=== PATIENT | female | born 1975 | race African-American/Black ===

== ENCOUNTER 2018-06-10 21:29 | Emergency (ER) | payer BC, MEDICAID ==
[~2018-06-10] VITALS: Ht 165.1 cm; Wt 107.0 kg
[2018-06-11] MEDS ORDERED: SODIUM CHLORIDE 0.9% 1,000 ML IV ONE (00:35)
[2018-06-11 01:18] LABS: BASOPHILS % 1.2 % (0.0-2.0); EOSINOPHILS % 6.9 % (0.0-5.0); HEMATOCRIT. 39.1 % (36.0-48.0); HEMOGLOBIN. 13.3 g/dL (12.0-16.0); LYMPHOCYTES % 45.7 % (20.0-50.0); MEAN CORPUSCULAR HEMOGLOBIN 31.8 pg (28.0-32.0); MEAN CORPUSCULAR VOLUME 93.8 fL (81.0-99.0); MEAN PLATELET VOLUME 7.7 fl (7.4-10.4); NEUTROPHILS % 41.2 % (40.0-76.0); PLATELET 280 x1000/uL (130-400); RED BLOOD CELL COUNT 4.18 mill/uL (4.2-5.4); RED CELL DISTRIBUTION WIDTH 12.9 % (11.6-14.6)
[2018-06-11 01:22] LABS: CHLORIDE 106 mEq/L (98-107)
[2018-06-11 01:23] LABS: PROTHROMBIN TIME 9.7 sec (9.1-11.1)
[2018-06-11 01:25] LABS: HCG SCREEN NEGATIVE
[2018-06-11 04:43] LABS: CLARITY URINE CLEAR (CLEAR); COLOR URINE YELLOW (YELLOW); KETONES URINE NEGATIVE (NEGATIVE); LEUKOCYTE ESTERASE URINE NEGATIVE (NEGATIVE); NITRITE URINE NEGATIVE (NEGATIVE); OCCULT BLOOD URINE 1+ (NEGATIVE); PROTEIN URINE NEGATIVE (NEGATIVE); SPECIFIC GRAVITY URINE 1.022 (1.005-1.030)
[2018-06-11] MEDS ORDERED: POTASSIUM CHLORIDE 20MEQ TABLET SR PO ONE (06:15)
[2018-06-11 06:50] VITALS: BP 107/52
== END 2018-06-11 06:51 | disposition home or self-care (01) ==
LOC: ER 21:29
DX: R10.12 Left upper quadrant pain (principal); J44.9 Chronic obstructive pulmonary disease, unspecified; I10 Essential (primary) hypertension; R07.89 Other chest pain; Z88.1 Allergy status to other antibiotic agents; Z98.890 Other specified postprocedural states
CPT/HCPCS: 36415; 71045; 74176; 76700; 80053; 81003; 83690; 84703; 85025; 85610; 93005; 99284; J7030

== ENCOUNTER 2018-07-15 22:48 | Emergency (ER) | payer BC ==
[~2018-07-15] VITALS: Ht 165.1 cm; Wt 107.0 kg
[2018-07-16 01:36] LABS: CLARITY URINE CLOUDY (CLEAR); COLOR URINE YELLOW (YELLOW); KETONES URINE TRACE (NEGATIVE); LEUKOCYTE ESTERASE URINE NEGATIVE (NEGATIVE); NITRITE URINE NEGATIVE (NEGATIVE); OCCULT BLOOD URINE TRACE (NEGATIVE); PROTEIN URINE NEGATIVE (NEGATIVE); SPECIFIC GRAVITY URINE 1.031 (1.005-1.030)
[2018-07-16 02:22] VITALS: BP 108/50
== END 2018-07-16 02:23 | disposition home or self-care (01) ==
LOC: ER 22:48
DX: N39.0 Urinary tract infection, site not specified (principal); R60.9 Edema, unspecified; I10 Essential (primary) hypertension; Z88.1 Allergy status to other antibiotic agents; Z98.890 Other specified postprocedural states
CPT/HCPCS: 81025; 99283

== ENCOUNTER 2018-10-06 18:54 | Emergency (ER) | payer MEDICARE, MEDICAID ==
[~2018-10-06] VITALS: Ht 160 cm; Wt 107.0 kg
[2018-10-06] MEDS ORDERED: DIPHENHYDRAMINE HCL/ZINC ACET 28 GM CREAM TOP STA (22:45)
[2018-10-06 23:22] VITALS: BP 115/71
== END 2018-10-06 23:23 | disposition home or self-care (01) ==
LOC: ER 18:54
DX: S80.861A Insect bite (nonvenomous), right lower leg, initial encounter (principal); J45.909 Unspecified asthma, uncomplicated; I10 Essential (primary) hypertension; Z98.890 Other specified postprocedural states; Z88.1 Allergy status to other antibiotic agents; W57.XXXA Bitten or stung by nonvenomous insect and other nonvenomous arthropods, initial encounter; Y93.89 Activity, other specified; Y92.89 Other specified places as the place of occurrence of the external cause; Y99.8 Other external cause status
CPT/HCPCS: 99282

== ENCOUNTER 2019-01-10 09:24 | Emergency (ER) | payer MEDICARE, MEDICAID ==
[~2019-01-10] VITALS: Ht 160 cm; Wt 107.0 kg
[2019-01-10] MEDS ORDERED: IBUPROFEN 600MG TABLET PO STA (09:59)
[2019-01-10 10:10] LABS: BASOPHILS % 0.7 % (0.0-2.0); EOSINOPHILS % 7.8 % (0.0-5.0); HEMATOCRIT. 37.7 % (36.0-48.0); LYMPHOCYTES % 29.5 % (20.0-50.0); MEAN CORPUSCULAR HEMOGLOBIN 31.9 pg (28.0-32.0); MEAN CORPUSCULAR VOLUME 92.8 fL (81.0-99.0); MEAN PLATELET VOLUME 7.9 fl (7.4-10.4); MONOCYTES % 5.7 % (2.0-8.0); NEUTROPHILS % 56.3 % (40.0-76.0); PLATELET 306 x1000/uL (130-400); RED BLOOD CELL COUNT 4.06 mill/uL (4.2-5.4); RED CELL DISTRIBUTION WIDTH 12.7 % (11.6-14.6)
[2019-01-10] MEDS ORDERED: MORPHINE SULFATE 2 MG/ML CPJ (NOT FOR IM USE) IV ONE (10:30)
[2019-01-10] MEDS ORDERED: ONDANSETRON HCL 4MG/2ML INJ IV ONE (10:30)
[2019-01-10 12:25] LABS: CLARITY URINE TURBID (CLEAR); KETONES URINE 1+ (NEGATIVE); LEUKOCYTE ESTERASE URINE 3+ (NEGATIVE); NITRITE URINE POSITIVE (NEGATIVE); OCCULT BLOOD URINE 3+ (NEGATIVE); PH URINE 6.5 (4.5-8.0); PROTEIN URINE 2+ (NEGATIVE); SPECIFIC GRAVITY URINE 1.024 (1.005-1.030)
[2019-01-10 12:30] LABS: COLOR URINE BLOODY (YELLOW)
[2019-01-10 13:14] VITALS: BP 106/65
== END 2019-01-10 13:16 | disposition home or self-care (01) ==
LOC: ER 09:24
DX: D25.9 Leiomyoma of uterus, unspecified (principal); Z98.890 Other specified postprocedural states; Z88.3 Allergy status to other anti-infective agents
CPT/HCPCS: 36415; 76830; 76856; 81003; 81025; 85025; 96374; 96375; 99284; J2270; J2405

== ENCOUNTER 2019-02-06 09:30 | Emergency (ER) | payer MEDICARE, MEDICAID ==
[~2019-02-06] VITALS: Ht 160 cm; Wt 65.0 kg
[2019-02-06] MEDS ORDERED: KETOROLAC 30MG/ML VIAL IV STA (10:11)
[2019-02-06] MEDS ORDERED: ONDANSETRON HCL 4MG/2ML INJ IV ONE (11:30)
[2019-02-06 11:45] LABS: BASOPHILS % 0.5 % (0.0-2.0); HEMATOCRIT. 38.5 % (36.0-48.0); HEMOGLOBIN. 13.1 g/dL (12.0-16.0); LYMPHOCYTES % 10.6 % (20.0-50.0); MEAN CORPUSCULAR HEMOGLOBIN 31.5 pg (28.0-32.0); MEAN CORPUSCULAR VOLUME 92.7 fL (81.0-99.0); MEAN PLATELET VOLUME 7.1 fl (7.4-10.4); NEUTROPHILS % 84.9 % (40.0-76.0); PLATELET 309 x1000/uL (130-400); RED BLOOD CELL COUNT 4.16 mill/uL (4.2-5.4); RED CELL DISTRIBUTION WIDTH 12.7 % (11.6-14.6)
[2019-02-06 11:51] LABS: CHLORIDE 111 mEq/L (98-107)
[2019-02-06 12:15] LABS: CLARITY URINE CLOUDY (CLEAR); KETONES URINE TRACE (NEGATIVE); LEUKOCYTE ESTERASE URINE 2+ (NEGATIVE); NITRITE URINE NEGATIVE (NEGATIVE); OCCULT BLOOD URINE 3+ (NEGATIVE); PH URINE 7.5 (4.5-8.0); PROTEIN URINE 1+ (NEGATIVE); SPECIFIC GRAVITY URINE 1.023 (1.005-1.030)
[2019-02-06 12:21] LABS: COLOR URINE BLOODY (YELLOW)
[2019-02-06 12:55] VITALS: BP 120/60
== END 2019-02-06 13:04 | disposition home or self-care (01) ==
LOC: ER 09:30
DX: N39.0 Urinary tract infection, site not specified (principal); R42 Dizziness and giddiness; R11.0 Nausea; J45.909 Unspecified asthma, uncomplicated; I10 Essential (primary) hypertension; Z88.1 Allergy status to other antibiotic agents
CPT/HCPCS: 36415; 80053; 81003; 81025; 83690; 85025; 87086; 96374; 96375; 99284; J1885; J2405

== ENCOUNTER 2022-01-18 01:14 | Emergency (ER) | payer OTHER, MEDICAID ==
[~2022-01-18] VITALS: Ht 160 cm; Wt 108.8 kg
[2022-01-18] MEDS ORDERED: ALBUTEROL (0.083%) 2.5MG/3ML NEB HHN STA (05:46)
[2022-01-18] MEDS ORDERED: IPRATROPIUM BROMIDE (0.02%) 0.5MG/2.5ML NEB HHN STA (05:46)
[2022-01-18] MEDS ORDERED: PREDNISONE 20MG TABLET PO STA (05:46)
[2022-01-18] MEDS ORDERED: P50 PO (06:47)
[2022-01-18] MEDS ORDERED: ALBU6.7H3 INH (06:47)
[2022-01-18 07:15] VITALS: BP 136/78
== END 2022-01-18 07:17 | disposition home or self-care (01) ==
LOC: ER 01:14
DX: J45.901 Unspecified asthma with (acute) exacerbation (principal); I10 Essential (primary) hypertension; E11.9 Type 2 diabetes mellitus without complications; F20.9 Schizophrenia, unspecified; R01.1 Cardiac murmur, unspecified; F17.210 Nicotine dependence, cigarettes, uncomplicated; Z88.7 Allergy status to serum and vaccine; Z88.3 Allergy status to other anti-infective agents; Z91.013 Allergy to seafood
CPT/HCPCS: 81025; 94640; 99283; J7512

== ENCOUNTER 2022-03-23 19:39 | Emergency (ER) | payer OTHER, MEDICAID ==
[~2022-03-23] VITALS: Ht 160 cm; Wt 107.2 kg
[~2022-03-23 19:39] MED LIST: ALBU6.7H3 INH; P50 PO
[2022-03-24 00:37] LABS: BASOPHILS % 0.7 % (0.0-2.0); EOSINOPHILS % 6.3 % (0.0-5.0); HEMATOCRIT. 33.5 % (36.0-48.0); HEMOGLOBIN. 11.2 g/dL (12.0-16.0); MEAN CORPUSCULAR HEMOGLOBIN 30.1 pg (28.0-32.0); MEAN CORPUSCULAR VOLUME 89.9 fL (81.0-99.0); MEAN PLATELET VOLUME 6.9 fl (7.4-10.4); MONOCYTES % 7.8 % (2.0-8.0); NEUTROPHILS % 41.2 % (40.0-76.0); PLATELET 280 x1000/uL (130-400); RED BLOOD CELL COUNT 3.72 mill/uL (4.2-5.4); RED CELL DISTRIBUTION WIDTH 13.7 % (11.6-14.6)
[2022-03-24 00:49] LABS: CHLORIDE 107 mEq/L (98-107)
[2022-03-24 02:15] VITALS: BP 118/62
[2022-03-25] MEDS ORDERED: ACET-2708 MT (03:16)
[2022-03-25] MEDS ORDERED: IBUP-2028 MT (03:16)
== END 2022-03-24 02:18 | disposition home or self-care (01) ==
LOC: ER 19:39
DX: R60.0 Localized edema (principal); I10 Essential (primary) hypertension; E11.9 Type 2 diabetes mellitus without complications; F20.9 Schizophrenia, unspecified; J45.909 Unspecified asthma, uncomplicated; Z98.890 Other specified postprocedural states; Z88.7 Allergy status to serum and vaccine; Z88.3 Allergy status to other anti-infective agents; Z91.013 Allergy to seafood
CPT/HCPCS: 36415; 71045; 80053; 81025; 83880; 85025; 93005; 93970; 99285

== ENCOUNTER 2022-03-24 20:36 | Emergency (ER) | payer OTHER, MEDICAID ==
[~2022-03-24] VITALS: Ht 160 cm; Wt 109.2 kg
[2022-03-24 20:47] VITALS: BP 116/77
[2022-03-25] MEDS ORDERED: KETOROLAC 60MG/2ML VIAL IM ONE (02:30)
[2022-03-25] MEDS ORDERED: ACETAMINOPHEN 325MG TABLET PO ONE (02:30)
[2022-03-25] MEDS ORDERED: IBUP-2028 MT (03:16)
[2022-03-25] MEDS ORDERED: ACET-2708 MT (03:16)
== END 2022-03-25 03:30 | disposition home or self-care (01) ==
LOC: ER 20:36
DX: M54.50 Low back pain, unspecified (principal); I10 Essential (primary) hypertension; J45.909 Unspecified asthma, uncomplicated; Z98.890 Other specified postprocedural states; Z88.7 Allergy status to serum and vaccine; Z88.8 Allergy status to other drugs, medicaments and biological substances; Z88.3 Allergy status to other anti-infective agents; Z91.013 Allergy to seafood; V79.50XA Passenger on bus injured in collision with unspecified motor vehicles in traffic accident, initial encounter; Y93.89 Activity, other specified; Y92.488 Other paved roadways as the place of occurrence of the external cause
CPT/HCPCS: 96372; 99283; J1885

== ENCOUNTER 2022-04-04 22:04 | Emergency (ER) | payer MEDICAID, OTHER ==
[~2022-04-04] VITALS: Ht 160 cm; Wt 107.3 kg
[~2022-04-04 22:04] MED LIST changes: +ACET-2708 MT; +IBUP-2028 MT
[2022-04-04 22:06] VITALS: BP 131/76
[2022-04-05] MEDS ORDERED: NAPR-681 PO (00:23)
== END 2022-04-05 01:06 | disposition home or self-care (01) ==
LOC: ER 22:04
DX: M19.021 Primary osteoarthritis, right elbow (principal); M24.821 Other specific joint derangements of right elbow, not elsewhere classified; Z87.81 Personal history of (healed) traumatic fracture; Z98.890 Other specified postprocedural states; Z88.7 Allergy status to serum and vaccine; Z88.3 Allergy status to other anti-infective agents; Z91.013 Allergy to seafood
CPT/HCPCS: 73080; 99283

== ENCOUNTER 2022-08-22 13:39 | Emergency (ER) | payer OTHER ==
[~2022-08-22] VITALS: Ht 160 cm; Wt 106.0 kg
[~2022-08-22 13:39] MED LIST changes: +NAPR-681 PO
[2022-08-22 14:04] VITALS: BP 134/57
[2022-08-22 16:22] LABS: BASOPHILS % 0.6 % (0.0-2.0); EOSINOPHILS % 8.5 % (0.0-5.0); HEMATOCRIT. 30.3 % (36.0-48.0); HEMOGLOBIN. 10.1 g/dL (12.0-16.0); LYMPHOCYTES % 33.8 % (20.0-50.0); MEAN CORPUSCULAR HEMOGLOBIN 28.9 pg (28.0-32.0); MEAN CORPUSCULAR VOLUME 86.7 fL (81.0-99.0); MEAN PLATELET VOLUME 6.8 fl (7.4-10.4); MONOCYTES % 7.8 % (2.0-8.0); NEUTROPHILS % 49.3 % (40.0-76.0); PLATELET 328 x1000/uL (130-400); RED BLOOD CELL COUNT 3.49 mill/uL (4.2-5.4); RED CELL DISTRIBUTION WIDTH 14.5 % (11.6-14.6)
[2022-08-22 16:30] LABS: CHLORIDE 109 mEq/L (98-107)
[2022-08-22] MEDS ORDERED: IBUP-2029 MT (19:27)
== END 2022-08-22 19:29 | disposition home or self-care (01) ==
LOC: ER 15:17
DX: R60.0 Localized edema (principal); J45.909 Unspecified asthma, uncomplicated; I10 Essential (primary) hypertension; Z88.1 Allergy status to other antibiotic agents; Z91.013 Allergy to seafood
CPT/HCPCS: 36415; 80053; 85025; 93970; 99284

== ENCOUNTER 2022-11-18 17:32 | Emergency (ER) | payer BC ==
[~2022-11-18] VITALS: Ht 160 cm; Wt 109.0 kg
[~2022-11-18 17:32] MED LIST changes: +IBUP-2029 MT
[2022-11-18 17:48] VITALS: BP 131/60; PULSE 79; RESP 18; TEMP 98.9; O2SAT 100
[2022-11-18 18:17] LABS: BASOPHILS % 0.3 % (0.0-2.0); EOSINOPHILS % 9.1 % (0.0-5.0); HEMATOCRIT. 30.2 % (36.0-48.0); LYMPHOCYTES % 33.6 % (20.0-50.0); MEAN CORPUSCULAR HEMOGLOBIN 27.7 pg (28.0-32.0); MEAN CORPUSCULAR HGB CONC 33.2 g/dL (31.0-37.0); MEAN CORPUSCULAR VOLUME 83.4 fL (81.0-99.0); MEAN PLATELET VOLUME 6.6 fl (7.4-10.4); PLATELET 288 x1000/uL (130-400); RED BLOOD CELL COUNT 3.62 mill/uL (4.2-5.4); RED CELL DISTRIBUTION WIDTH 15.1 % (11.6-14.6); WHITE BLOOD COUNT 6.4 x1000/uL (4.5-11.0)
[2022-11-18 18:46] LABS: CHLORIDE 109 mEq/L (98-107); INDEX HEMOLYSI 1 (1-3); INDEX ICTERIC 1 (1-4); INDEX LIPEMIC 1 (1-3); POTASSIUM 3.3 mEq/L (3.5-5.1); SODIUM 138 mEq/L (136-145)
[2022-11-18 18:56] LABS: ALANINE AMINOTRANSFERASE 16 IU/L (13-61); ALBUMIN 3.3 g/dL (3.4-5.0); ASPARTATE AMINOTRANSFERASE 8 IU/L (15-37); CALCIUM 8.3 mg/dL (8.5-10.1); CARBON DIOXIDE 28 mEq/L (21-32); CREATININE 0.9 mg/dL (0.6-1.3); GLUCOSE 121 mg/dL (70-105); NT PRO B-TYPE NATRIURETIC PEP 37 pg/mL (5-125); PROTEIN TOTAL 7.2 g/dL (6.0-8.3); UREA NITROGEN BLOOD 15 mg/dL (7-21)
[2022-11-18 19:06] LABS: BILIRUBIN TOTAL < 0.1 mg/dL (0.1-1.0); TROPONIN I HIGH SENSITIVITY < 4 ng/L (<54)
[2022-11-18] MEDS ORDERED: POTASSIUM CHLORIDE 20MEQ TABLET SR PO ONE (19:45)
== END 2022-11-18 22:55 | disposition home or self-care (01) ==
LOC: ER 17:32
DX: M79.89 Other specified soft tissue disorders (principal); J45.909 Unspecified asthma, uncomplicated; I10 Essential (primary) hypertension; Z79.899 Other long term (current) drug therapy
CPT/HCPCS: 36415; 71045; 80053; 83880; 84484; 85025; 99291